=== PATIENT | male | born 1960 | race Caucasian/White ===

== ENCOUNTER → 2018-01-10 07:00 | Outpatient (CLI) | payer BC, SELFPAY ==
[2018-01-10 10:41] LABS: AST(SGOT) 22 U/L (15-37); Alanine Aminotransfer ALT/SGPT 32 U/L (16-61); Albumin, Serum 3.8 g/dL (3.2-5.0); Alkaline Phosphatase 84 U/L (45-117); Anion Gap 10 (5-15); BUN 12 mg/dL (7-18); BUN/Creat Ratio 13.3 RATIO (10-20); Calcium,Total 8.5 mg/dL (8.5-10.1); Chloride 106 mmol/L (98-107); Cholesterol 175 mg/dL (200); EST Glomerular Filtration Rate 92 mL/min (>60); Est Glom Filt Rate - Afr Amer 112 mL/min (>60); Globulin 3.9 g/dL (2.2-4.2); Glucose 95 mg/dL (74-106); High Density Lipoprotein 46 mg/dL; PSA,Total - Annual Screen 0.76 ng/mL (0.00-4.00); Potassium 4.3 mmol/L (3.5-5.1); Protein, Total 7.7 g/dL (6.4-8.2); Sodium Level 138 mmol/L (136-145); Triglycerides 100 mg/dL; Very Low Density Lipoprotein 20 mg/dL (5-40)
== END ==
PROVIDERS: Family Provider Family Medicine; PCP Family Medicine; Visit Provider Family Medicine
DX: E78.2 Mixed hyperlipidemia (principal); Z12.5 Encounter for screening for malignant neoplasm of prostate
CPT/HCPCS: 36415; 80053; 80061; 84153; G0103

== ENCOUNTER → 2020-04-18 08:35 | Outpatient (CLI) | payer BC, SELFPAY ==
[2020-04-18 10:28] LABS: Anion Gap 6 (5-15); BUN 8 mg/dL (7-18); BUN/Creat Ratio 7.6 RATIO (10-20); Calcium,Total 8.7 mg/dL (8.5-10.1); Chloride 105 mmol/L (98-107); Cholesterol 237 mg/dL (200); Creatinine, Serum 1.05 mg/dL (0.70-1.30); EST Glomerular Filtration Rate 77 mL/min (>60); Est Glom Filt Rate - Afr Amer 93 mL/min (>60); Glucose 95 mg/dL (74-106); High Density Lipoprotein 50 mg/dL; PSA,Total - Annual Screen 0.94 ng/mL (0.00-4.00); Potassium 4.4 mmol/L (3.5-5.1); Sodium Level 139 mmol/L (136-145); Triglycerides 251 mg/dL; Very Low Density Lipoprotein 50 mg/dL (5-40)
== END ==
PROVIDERS: PCP Family Medicine; Visit Provider Family Medicine
DX: I10 Essential (primary) hypertension (principal); E78.2 Mixed hyperlipidemia; Z12.5 Encounter for screening for malignant neoplasm of prostate
CPT/HCPCS: 36415; 80048; 80061; 84153; G0103

== ENCOUNTER → 2020-04-21 | Outpatient (CLI) | payer BC, SELFPAY ==
--- NOTE | 2020-04-21 10:50 | LES_PTH ---
PATIENT: YOMAIRA SUTHERLAND LOC: [facility] U#:[id number] AGE/SX: 59/M ROOM: RE04/21/[address]: Dr. Yeison Kan MD : 1960 BED: DIS: 04/21/2020 SPEC #: [id number] RECD: 04/21/20 12:03 STATUS: TRENT THONG #: [id number] JEREMIAH: 04/21/20 10:[address]: Yeison Kan DEPT: SURGICAL PATHOLOGY RECD BY: Juan Mane Tissues: Skin of face, NOS Procedures: Surgery Specimen Level IV HEADER OPERATION: Shave lesion PRE-OP DIAGNOSIS: ? BCC TISSUE SUBMITTED: Biopsy of face MICROSCOPIC DIAGNOSIS Skin lesion of face, shave biopsy: Basal cell carcinoma. See comment. AM:donna 04/25/2020 COMMENT The lesion extends to the peripheral and deep margins of excision. Clinical correlation is suggested. MICROSCOPIC DESCRIPTION Slides are reviewed. GROSS DESCRIPTION Received is one container labeled with the patient's name and not further designated. The specimen consists of a single light blancas soft tissue/skin measuring 5 mm in diameter and 0.1 cm in thickness. The specimen is submitted in its entirety in one cassette. / AM:donna 04/21/20 TC:0 CPT: 93221
== END | disposition home or self-care (01) ==
LOC: LABSPEC 12:13
PROVIDERS: PCP Family Medicine; Referring Provider Family Medicine; Visit Provider Family Medicine
DX: C44.310 Basal cell carcinoma of skin of unspecified parts of face (principal)
CPT/HCPCS: 88305

== ENCOUNTER → 2020-12-20 16:45 | Outpatient (CLI) | payer BC, SELFPAY | PROVIDERS: PCP Family Medicine; Visit Provider Family Medicine | DX: U07.1 COVID-19 (principal) | CPT/HCPCS: 87635; U0005; U0003 ==

== ENCOUNTER 2021-06-30 08:52 | Outpatient (CLI) | payer BC, SELFPAY ==
[2021-06-30 10:21] LABS: AST(SGOT) 26 U/L (15-37); Alanine Aminotransfer ALT/SGPT 51 U/L (16-61); Albumin, Serum 3.7 g/dL (3.2-5.0); Alkaline Phosphatase 101 U/L (45-117); Anion Gap 4 (5-15); BUN 12 mg/dL (7-18); BUN/Creat Ratio 11.9 RATIO (10-20); Chloride 105 mmol/L (98-107); Cholesterol 200 mg/dL (200); Creatinine, Serum 1.01 mg/dL (0.70-1.30); EST Glomerular Filtration Rate 80 mL/min (>60); Est Glom Filt Rate - Afr Amer 97 mL/min (>60); Globulin 3.8 g/dL (2.2-4.2); Glucose 107 mg/dL (74-106); High Density Lipoprotein 46 mg/dL; PSA,Total - Annual Screen 0.88 ng/mL (0.00-4.00); Potassium 4.1 mmol/L (3.5-5.1); Protein, Total 7.5 g/dL (6.4-8.2); Sodium Level 136 mmol/L (136-145); Triglycerides 229 mg/dL; Very Low Density Lipoprotein 46 mg/dL (5-40)
== END 2021-06-30 23:59 | disposition home or self-care (01) ==
LOC: MTLAB 08:55
PROVIDERS: PCP Family Medicine; Referring Provider Family Medicine; Visit Provider Family Medicine
DX: E78.2 Mixed hyperlipidemia (principal); Z12.5 Encounter for screening for malignant neoplasm of prostate
CPT/HCPCS: 36415; 80053; 80061; 84153; G0103

== ENCOUNTER → 2022-10-12 | Outpatient (CLI) | payer BC, SELFPAY ==
[2022-10-12 10:42] LABS: AST(SGOT) 19 U/L (15-37); Alanine Aminotransfer ALT/SGPT 33 U/L (16-61); Albumin, Serum 3.5 g/dL (3.2-5.0); Alkaline Phosphatase 95 U/L (45-117); Anion Gap 5 (5-15); BUN 14 mg/dL (7-18); BUN/Creat Ratio 15.4 RATIO (10-20); Calcium,Total 8.6 mg/dL (8.5-10.1); Chloride 109 mmol/L (98-107); Cholesterol 185 mg/dL (200); Creatinine, Serum 0.91 mg/dL (0.70-1.30); EST Glomerular Filtration Rate 90 mL/min (>60); Est Glom Filt Rate - Afr Amer 109 mL/min (>60); Globulin 3.5 g/dL (2.2-4.2); Glucose 101 mg/dL (74-106); High Density Lipoprotein 39 mg/dL; PSA,Total - Annual Screen 1.05 ng/mL (0.00-4.00); Potassium 4.4 mmol/L (3.5-5.1); Sodium Level 141 mmol/L (136-145); Triglycerides 174 mg/dL; Very Low Density Lipoprotein 35 mg/dL (5-40)
== END | disposition home or self-care (01) ==
LOC: MFPLAB 08:24
PROVIDERS: PCP Family Medicine; Visit Provider Family Medicine
DX: I10 Essential (primary) hypertension (principal); Z12.5 Encounter for screening for malignant neoplasm of prostate
CPT/HCPCS: 36415; 80053; 80061; 84153; G0103

== ENCOUNTER 2023-12-04 21:09 | Emergency (ER) | payer BC, SELFPAY ==
[2023-12-04 21:09] VITALS: BP 157/137; PULSE 120; RESP 24; TEMP 36.6; O2SAT 97; BMI 22.6
[2023-12-04 21:24] LABS: Basophil# 0.06 X10^3/uL; Basophil% 0.4 % (0-1); Eosinophil# 0.11 X10^3/uL; Eosinophils% 0.7 % (0-5); Hematocrit 41.9 % (40-54); Hemoglobin 14.2 g/dL (13.0-16.5); Lymphocyte % 21.6 % (19-41); Mean Corp Hgb Conc 33.9 g/dL (32-36); Mean Corpuscular Volume 88.4 fL (80-94); Monocyte# 1.42 X10^3/uL; Monocyte% 8.8 % (0-10); NRBC Flagged by Analyzer 0 % (0-5); Neutrophil # 11.03 X10^3/uL (2.7-7.7); Neutrophil % 68.1 % (47-70); Platelet Count 269 K/mm3 (150-450); RBC Distribution Width CV 12.8 % (11.6-14.6); RBC Distribution Width SD 41.5 fl (35.1-43.9); Red Blood Count 4.74 M/mm3 (4.6-6.2); White Blood Count 16.2 K/mm3 (4.4-11.0)
[2023-12-04 21:37] VITALS: BP 182/106; PULSE 115; RESP 22; O2SAT 96
[2023-12-04 21:43] LABS: Anion Gap 8 (5-15); BUN 12 mg/dL (7-18); BUN/Creat Ratio 12.7 RATIO (10-20); Calcium,Total 9.4 mg/dL (8.5-10.1); Chloride 101 mmol/L (98-107); Creatinine, Serum 0.94 mg/dL (0.70-1.30); EST Glomerular Filtration Rate 86 mL/min (>60); Est Glom Filt Rate - Afr Amer 104 mL/min (>60); Glucose 127 mg/dL (74-106); Potassium 3.4 mmol/L (3.5-5.1); Sodium Level 136 mmol/L (136-145); Troponin-I HS (w/2H Reflex) 4 pg/mL (3.0-78.0)
[2023-12-04 22:09] VITALS: BP 150/110; PULSE 112; PULSE 115; RESP 20; O2SAT 95
--- NOTE | 2023-12-04 22:10 | RAD_ITS ---
INDICATION: chest pain EXAMINATION/TECHNIQUE: X-RAY - XR Chest 1 View COMPARISON: January 07, 2006 FINDINGS: LINES/DEVICES: None. LUNGS: Mild left basilar atelectasis.. No pneumothorax. MEDIASTINUM AND CARDIOVASCULAR STRUCTURES: Cardiac silhouette not enlarged. Central airways and mediastinal contour are unremarkable. BONES AND SOFT TISSUES: Unremarkable. RAD/Chest 1 View (Portable) IMPRESSION: Left basilar atelectasis. Electronically Signed: Brant Keenan DO at 23:06 EDT ,
[2023-12-04 22:16] VITALS: O2SAT 95
--- NOTE | 2023-12-04 22:28 | CT_ITS ---
STUDY: CTA CHEST REASON FOR EXAM: Male, 63 years old. chest pain RADIATION DOSAGE (If Supplied By Facility): CTDIvol = ( 14.72 ) mGy, DLP = ( 418.08 ) mGycm TECHNIQUE: The examination was performed with the intravenous administration of 100 ML ISOVUE 370. Post-processing of the angiographic images was performed, with multiplanar reformation and 3D reconstruction. The protocol utilizes one or more of the following dose reduction techniques: automated exposure control, adjustment of mA and/or kV according to patient size,and/or use of iterative reconstruction technique. COMPARISON: FINDINGS: Normal enhancement of the main pulmonary artery and right and left pulmonary arteries. Normal enhancement of the bilateral peripheral pulmonary arteries. There is no demonstrated pulmonary embolism. Normal thoracic aorta and visualized great vessels. There is no demonstrated aortic dissection. Normal heart and pericardium. Normal mediastinum. Normal hilar regions. Normal visualized trachea and bronchi. Basilar atelectasis. Focal small lingular consolidation. Normal pleura. Normal chest wall structures. Normal osseous structures. Normal visualized upper abdomen. CT/CTA Chest W/WO Contrast IMPRESSION: No demonstrated pulmonary embolism or arterial dissection. Basilar atelectasis. Focal small lingular consolidation. Electronically Signed: Brant Keenan DO at 23:39 EDT ,
[2023-12-04 22:41] LABS: Prothrombin Time (Protime)PT. 13.2 SECONDS (11.7-14.9)
[2023-12-04 22:42] LABS: Partial Thromboplast Time 28.3 Seconds (24.1-36.2)
[2023-12-04] MEDS: Ondansetron 4 MG/2 ML Vial IV (22:43)
[2023-12-04] MEDS: Morphine 4 MG/ML Syringe IV (22:43)
[2023-12-04] MEDS: 0.9% Normal Saline (1000mL) 1,000 ML 999 ML IV (22:45)
[2023-12-04 23:00] VITALS: BP 160/114; PULSE 112; RESP 20; O2SAT 96
[2023-12-04 23:22] LABS: Reflex Troponin-HS? (from REC) Y
[2023-12-04] MEDS: HYDROmorphone 1 MG/ML Syringe IV (23:28)
[2023-12-04] MEDS: LORazepam 2 MG/ML Syringe 0.5 MG IV (23:28)
[2023-12-04 23:58] LABS: Troponin-I HS 4 pg/mL (3.0-78.0)
[2023-12-05] VITALS: BP 130/103; PULSE 106; RESP 18; O2SAT 94
--- NOTE | 2023-12-05 00:39 | EDS_ITS ---
HPI History of Present Illness Chief Complaint: Chest Pain Informant: patient and spouse/S.O. Narrative Narrative: Patient is a 63-year-old male with past medical history of hypertension and hyperlipidemia. He states that he was recently on vacation at [place] and multiple family members that were on vacation with him were sick. He states he has had 2 to 3 days of congestion and cough and he noticed some left-sided chest wall pain with coughing. However today the pain increased in severity and has been constant. He denies any nausea or vomiting or diaphoresis however with the worsening pain he is concerned this could be cardiac in nature and therefore comes in for evaluation [facility] Medical History (Updated 12/05/23 @ 07:[address] Kameron Ayala, DO) Hyperlipemia Hypertension Home Medications ?Medication ?Instructions ?Recorded ?Last Taken ?Type fluticasone propionate 50 2 spray intranasal QHS 12/04/23 Unknown History mcg/actuation nasal spray,suspension gabapentin 300 mg capsule 300 mg PO DAILY 12/04/23 Unknown History loratadine 10 mg tablet (Claritin) 10 mg PO DAILY 12/04/23 Unknown History metoprolol succinate 100 mg 100 mg PO DAILY 12/04/23 Unknown History tablet,extended release 24 hr simvastatin 20 mg tablet 20 mg PO QHS 12/04/23 Unknown History sumatriptan succinate 50 mg tablet 50 mg PO PRN 12/04/23 Unknown History doxycycline hyclate 100 mg capsule 100 mg PO BID 10 days #20 caps 12/05/23 Unknown Rx oxycodone-acetaminophen 5 mg-325 1 tab PO Q6H PRN pain 3 days #12 12/05/23 Unknown Rx mg tablet (Percocet) tabs Allergy/AdvReac Type Severity Reaction Status Date / Time No Known Allergies Allergy Verified 12/04/23 21:09 Surgical History (Updated 12/04/23 @ 22:13 by Fauzia Mon) History of mandibular surgery Hx of hernia repair Social History Smoking Status: Current every day smoker tobacco type: cigarettes ROS ROS ED Constitutional Constitutional ED: Denies chills or fever(s) ENT ENT ED: Reports rhinorrhea; Denies sore throat Cardiovascular Cardiovascular: Reports chest pain and racing heartbeat; Denies palpitations Respiratory/Chest Respiratory/Chest: Reports cough and dyspnea Gastrointestinal Gastrointestinal: Denies abdominal pain, diarrhea, nausea or vomiting Genitourinary Genitourinary ED: Denies dysuria Musculoskeletal Musculoskeletal: Denies back pain or myalgias Integumentary Denies rash Neurologic Neurologic: Denies headache(s) Hematologic/Lymphatic Hematologic/Lymphatic: Denies easy bleeding or easy bruising EXAM Physical Exam Const Vital Signs: 12/04/23 21:09 12/04/23 21:37 12/04/23 22:09 Temperature 97.9 F Temperature Source Temporal Pulse Rate 120 H 115 H 115 H Respiratory Rate 24 H 22 H 20 H Respiratory Effort Blood Pressure 157/137 H 182/106 H 150/110 H Blood Pressure Mean 143 131 123 Pulse Ox 97 96 95 Oxygen Delivery Method Room Air Room Air Room Air 12/04/23 22:09 12/04/23 22:12 12/04/23 22:16 Temperature Temperature Source Pulse Rate 112 H Respiratory Rate 20 H Respiratory Effort Short of Breath Blood Pressure 150/110 H Blood Pressure Mean 123 Pulse Ox 95 95 Oxygen Delivery Method Room Air Room Air 12/04/23 23:00 12/05/23 00:00 12/05/23 01:16 Temperature 97.9 F Temperature Source Pulse Rate 112 H 106 H 80 Respiratory Rate 20 H 18 18 Respiratory Effort Blood Pressure 160/114 H 130/103 H 136/98 H Blood Pressure Mean 129 112 110 Pulse Ox 96 94 96 Oxygen Delivery Method Room Air Room Air Positive well nourished and well developed General Appearance ED: well developed; Negative for pallor HEENT Reports moist mucous membranes HEENT Narrative: Cobblestoning in the posterior pharynx consistent with sinus drainage No tongue or lip swelling no oral lesions no airway edema or compromise Eyes PERRL and EOMs intact bilaterally General Eye ED: Negative for pale conjunctiva or scleral icterus Neck supple and no JVD Chest Wall palpation of chest normal Chest Narrative: No bony deformity or crepitance of the chest wall no reproducible pain with palpation Resp Resp Narrative: Breath sounds are diminished throughout and tachypnea with slight accessory muscle use is noted. There is rhonchi noted in the left lower lobe. no nasal flaring or retractions present Cardio regular rhythm Rate: tachycardic and other Other Details: Tachycardic rate with regular rhythm No murmurs rubs or gallops Radial and carotid pulses are equal and symmetric GI normal to inspection, nondistended, normoactive bowel sounds, non-tender, non- distended and no masses Auscultation: normoactive bowel sounds Palpation: soft Extremity normal to inspection Extremity Narrative: No asymmetric edema no pitting edema negative Homans' sign bilaterally Neuro oriented x3, CN's II-XII intact bilaterally and no sensory deficits noted Sensorium / Orientation: alert Motor Exam: strength 5/5 throughout Psych mental status grossly normal Skin no rashes or lesions noted General Skin Exam: Negative for jaundice or pallor MDM MDM MDM Narrative Medical decision making narrative: Patient arrived to the ER hypertensive and tachycardic. With his chest pain and tachycardia as well as recent travel there is concern for pulmonary embolus versus pneumonia versus pneumothorax. There is also concern for cardiac dysrhythmia versus acute coronary syndrome. Patient is EKG shows sinus tachycardia without ischemic changes. With his initial and delta troponin being for this goes against ACS. His chest x-ray did not reveal any obvious pneumonia or infiltrate but with the persistent tachycardia and pain there is concern for pulmonary embolus so CTA was ordered. CTA revealed no PE or dissection or pneumomediastinum but it did show an infiltrate in the lingula which does correlate with the location of the patient's pain. The patient does have leukocytosis at 16.2 which would correlate with infectious process as well but there is no left shift and he is afebrile. At this time his vitals have improved with treatment he is not hypoxic or in respiratory distress and we have ruled out ACS cardiac dysrhythmia pulmonary embolus and dissection so do not feel there is need for continued evaluation in the ER. He will be started on doxycycline secondary to the lingular infiltrate but is otherwise safe for discharge History & Record Review Discussion w/independent historian: Patient and Significant other Lab Data Attestation: I reviewed the patient's lab results. Labs: Laboratory Results - last 24 hr 12/04/23 12/04/23 21:18 23:31 WBC 16.2 H RBC 4.74 Hgb 14.2 Hct 41.9 MCV 88.4 MCH 30.0 MCHC 33.9 RDW Std Deviation 41.5 RDW Coeff of Marc 12.8 Plt Count 269 MPV 9.0 Immature Gran % (Auto) 0.400 Neut % (Auto) 68.1 Lymph % (Auto) 21.6 [place] % (Auto) 8.8 Eos % (Auto) 0.7 Baso % (Auto) 0.4 Absolute Neuts (auto) 11.0 H Absolute Lymphs (auto) 3.50 Nucleated RBC % 0 PT 13.2 INR 1.0 APTT 28.3 Sodium 136 Potassium 3.4 L Chloride 101 Carbon Dioxide 27.0 Anion Gap 8 BUN 12 Creatinine 0.94 Estim Creat Clear Calc 87.20 Est GFR (MDRD) Af Amer 104 Est GFR (MDRD) Non-Af 86 BUN/Creatinine Ratio 12.7 Glucose 127 H Calcium 9.4 Troponin I High Sens 4 4 Radiography Diagnostic Testing: Clinical Impression(s) from Imaging Studies Chest X-Ray 12/04/23 22:10 IMPRESSION: Left basilar atelectasis. Electronically Signed: Brant Keenan DO at 23:06 EDT , Chest CTA 12/04/23 22:28 IMPRESSION: No demonstrated pulmonary embolism or arterial dissection. Basilar atelectasis. Focal small lingular consolidation. Electronically Signed: Brant Keenan DO at 23:39 EDT , Chest x-ray as interpreted by the emergency medicine physician reveals bibasilar atelectasis without acute infiltrate pneumothorax or pleural effusion Discharge Plan Triage Chief Complaint: Chest Pain ED Provider: Kameron Ayala Dx/Rx/DC Orders Clinical Impression: Lingular pneumonia, Hypertension, Hyperlipidemia Instructions: ED Pneumonia (Adult) Prescriptions: New doxycycline hyclate 100 mg capsule 100 mg PO BID 10 Days Qty: 20 0RF oxycodone-acetaminophen [Percocet] 5-325 mg tablet 1 tab PO Q6H PRN (Reason: pain) 3 Days Qty: 12 0RF No Action metoprolol succinate 100 mg tablet extended release 24 hr 100 mg PO DAILY sumatriptan succinate 50 mg tablet 50 mg PO PRN simvastatin 20 mg tablet 20 mg PO QHS gabapentin 300 mg capsule 300 mg PO DAILY fluticasone propionate 50 mcg/actuation spray,suspension 2 spray INTRANASAL QHS loratadine [Claritin] 10 mg tablet 10 mg PO DAILY Primary Care Provider: Yeison Kan Referrals: Yeison Kan MD [Primary Care Provider] - Activity Restrictions/Additional Instructions: Please take the antibiotic as directed to resolve your infection. It would typically take 48 to 72 hours for improvement. If you have any further concerns or worsening symptoms please return for repeat evaluation Print Language: Hebrew Disposition Disposition: Home, Self Care Discharge Date/Time: 12/05/23 01:17
[2023-12-05] MEDS: Doxycycline 100 MG CAPSULE PO (01:14)
[2023-12-05] MEDS: oxyCODONE 5 MG Tablet 10 MG PO (01:14)
[2023-12-05 01:16] VITALS: BP 136/98; PULSE 80; RESP 18; TEMP 36.6; O2SAT 96
== END 2023-12-05 01:17 | disposition home or self-care (01) ==
PROVIDERS: Emergency Provider Emergency Medicine; PCP Family Medicine; Visit Provider Emergency Medicine
DX: J18.9 Pneumonia, unspecified organism (principal); R07.9 Chest pain, unspecified; F17.210 Nicotine dependence, cigarettes, uncomplicated; E78.5 Hyperlipidemia, unspecified; I10 Essential (primary) hypertension; Z79.899 Other long term (current) drug therapy
CPT/HCPCS: 71045; 71275; 80048; 84484; 85025; 85610; 85730; 93005; 96361; 96374; 96375; 99285; J7030; Q9967; A4216; J2405